=== PATIENT | female | born 2000 | race Caucasian/White ===

== ENCOUNTER 2020-09-11 14:47 | Emergency (ER) | payer BC, OTHER ==
[~2020-09-11] VITALS: Ht 170.2 cm; Wt 61.2 kg
[2020-09-11] MEDS ORDERED: OLANZAPINE ODT5 MG PO (15:08)
[2020-09-11 15:13] LABS: ABSOLUTE NEUTROPHILS 4.3 thou/uL (1.4-8.2); BASOPHILS 0.3 % (0.0-2.0); EOSINOPHILS 1.9 % (0.0-3.0); HEMATOCRIT 34.3 % (37.0-47.0); HEMOGLOBIN 11.5 gm/dL (12.0-15.0); LYMPHOCYTES 23.5 % (24.0-44.0); MCH 30.8 pg (26.0-34.0); MCHC 33.5 g/dL (28.0-37.0); MCV 91.8 fL (80.0-100.0); MONOCYTES 13.6 % (1.0-8.0); PLATELET COUNT 248 thou/uL (150-400); POLYS 60.7 % (36.0-66.0); RBC 3.74 mil/uL (4.20-5.00); RDW 13.7 % (10.5-14.5)
[2020-09-11 15:29] LABS: CALCIUM 8.5 mg/dL (8.5-10.1); CREATININE 0.7 mg/dL (0.6-1.0); POTASSIUM 3.8 mmol/L (3.5-5.1)
[2020-09-11 15:35] LABS: ALBUMIN 3.3 g/dL (3.4-5.0); MAGNESIUM 1.9 mg/dL (1.8-2.4); SALICYLATE 2.8 mg/dL (2.8-20.0); TOTAL BILIRUBIN 0.2 mg/dL (0.2-1.0); TOTAL PROTEIN 6.8 g/dL (6.4-8.2)
[2020-09-11 15:47] LABS: URINE BILIRUBIN NEGATIVE (Negative); URINE BLOOD 2+ (Negative); URINE CLARITY CLEAR; URINE COLOR YELLOW; URINE GLUCOSE-RANDOM* NEGATIVE (Negative); URINE KETONES NEGATIVE (Negative); URINE LEUKOCYTES-REFLEX NEGATIVE (Negative); URINE NITRITE-REFLEX NEGATIVE (Negative); URINE PROTEIN (DIPSTICK) NEGATIVE (Negative); URINE UROBILINOGEN 0.2 E.U./dl (0.2-1.0)
[2020-09-11 15:55] LABS: SQUAMOUS 4-10 Moderate /LPF (0-3)
[2020-09-11 15:56] LABS: AMP/METHAMP Negative (Negative); BACTERIA-REFLEX 1-9 Few /HPF (None Seen); BARBITURATES Negative (Negative); BENZODIAZEPINES Negative (Negative); CASTS None Seen /LPF (None Seen); COCAINE Negative (Negative); CRYSTALS None Seen /LPF (None Seen); METHADONE Negative (Negative); OPIATES Negative (Negative); PCP Negative (Negative); URINE RBC 3-10 Few /HPF (NONE SEEN); URINE WBC-REFLEX 0-5 Rare /HPF (0-5)
--- NOTE | 2020-09-12 07:46 | EKG ---
[address] [place] [address] ELECTROCARDIOGRAM REPORT Name: GARIMA CARTER Room #: [facility] [id number] Admission: 09/11/20 Attend Phys: Discharge: Date of : 89 Report #: [id number] [facility] ED Test Date: 2020-09-11 Test Time: 15:11:26 Pat Name: GARIMA CARTER Department: Room: Gender: F Linux Support Engineer: DELMY : 2000 Requested By: Kobi Parkinson Order Number: [id number] MD: Claudy Bae Measurements Intervals [place] Rate: 91 P: 73 AR: 142 QRS: 53 QRSD: 81 T: 43 QT: 358 QTc: 441 Interpretive Statements Sinus rhythm No previous ECG available for comparison Electronically Signed On 09-12-2020 7:45:58 CDT by Claudy Bae [email or web address] <ELECTRONICALLY SIGNED> By: Claudy Bae MD, [facility] 09/12/20 0745 1511 1511 Claudy Bae MD, [facility] /EPI
[2020-09-12 10:31] VITALS: BP 110/65
== END 2020-09-12 10:32 | disposition psychiatric hospital, planned readmission (93) ==
LOC: ER 14:47
PROVIDERS: Emergency Medicine
DX: R45.851 Suicidal ideations (principal); Z20.822 Contact with and (suspected) exposure to COVID-19; F41.9 Anxiety disorder, unspecified; F32.9 Major depressive disorder, single episode, unspecified; F17.210 Nicotine dependence, cigarettes, uncomplicated; Z88.8 Allergy status to other drugs, medicaments and biological substances; Z88.0 Allergy status to penicillin